=== PATIENT | female | born 1985 | race Caucasian/White ===

== ENCOUNTER → 2016-07-06 | Outpatient (CLI) | payer BC | END | disposition home or self-care (01) | LOC: LABWHC1 15:45 | PROVIDERS: ATTEND Obstetrics & Gynecology | DX: Z34.00 Encounter for supervision of normal first pregnancy, unspecified trimester (principal); Z3A.00 Weeks of gestation of pregnancy not specified | CPT/HCPCS: 36415; 84702; 86850; 86900; 86901 ==

== ENCOUNTER → 2016-07-08 | Outpatient (CLI) | payer BC | END | disposition home or self-care (01) | LOC: LABWHC1 15:14 | PROVIDERS: ATTEND Obstetrics & Gynecology | DX: Z34.00 Encounter for supervision of normal first pregnancy, unspecified trimester (principal); Z3A.00 Weeks of gestation of pregnancy not specified | CPT/HCPCS: 36415; 84702; 86850; 86900; 86901 ==

== ENCOUNTER → 2016-07-15 | Outpatient (CLI) | payer BC | END | disposition home or self-care (01) | LOC: LABWHC1 11:57 | PROVIDERS: ATTEND Obstetrics & Gynecology | DX: O03.9 Complete or unspecified spontaneous abortion without complication (principal); Z3A.00 Weeks of gestation of pregnancy not specified | CPT/HCPCS: 36415; 84702 ==

== ENCOUNTER → 2016-07-22 | Outpatient (CLI) | payer BC | END | disposition home or self-care (01) | LOC: LABWHC1 15:22 | PROVIDERS: ATTEND Obstetrics & Gynecology | DX: O03.9 Complete or unspecified spontaneous abortion without complication (principal); Z3A.00 Weeks of gestation of pregnancy not specified | CPT/HCPCS: 36415; 84702 ==

== ENCOUNTER 2017-02-12 00:22 | Emergency (ER) | payer BC ==
[2017-02-12] MEDS ORDERED: LORazepam 1 MG TAB PO STA (00:51)
--- NOTE | 2017-02-12 01:31 | ED ---
General Adult HPI - General Chief complaint: Anxiety Stated complaint: Anxiety Time Seen by Provider: 02/12/17 00:41 Source: patient, RN notes reviewed Mode of arrival: ambulatory Limitations: no limitations - History of Present Illness Initial comments: 31-year-old female presents emergency room chief complaint of a panic attack. They are having fertility problems and she is just been overwhelmed by the thought she woke up out of sleep panic taking she had a host come down so they thought that they should be seen. Patient states that she normally can calm himself down at home but today it is just worse. She has a lot of anxiety around her fertility issues. She denies any chest pain or shortness of breath with this. She states she just is so overwhelmed and she is not on how to deal with it. She denies any suicidal or homicidal thoughts.Patient denies any recent fever, chills, shortness of breath, chest pain, back pain, abdominal pain , nausea vomiting, numbness or tingling, dysuria or hematuria, constipation or diarrhea, headaches or visual changes, or any other current symptoms. - Related Data Home Medications Medication Instructions Recorded Confirmed No Known Home Medications [No 02/12/17 02/12/17 Known Home Medications] Allergies Allergy/AdvReac Type Severity Reaction Status Date / Time Penicillins Allergy Rash/Hives Verified 02/12/17 00:35 Review of Systems ROS Statement: Those systems with pertinent positive or pertinent negative responses have been documented in the HPI. ROS Other: All systems not noted in ROS Statement are negative. Past Medical History Past Medical History: No Reported History History of Any Multi-Drug Resistant Organisms: None Reported Additional Past Surgical History / Comment(s): egg retreival surgery Past Psychological History: Anxiety Smoking Status: Never smoker Past Alcohol Use History: Rare Past Drug Use History: None Reported General Exam Limitations: no limitations General appearance: alert, anxious Head exam: Present: atraumatic, normocephalic, normal inspection Eye exam: Present: normal appearance ENT exam: Present: mucous membranes moist Neck exam: Present: normal inspection. Absent: tenderness, meningismus, lymphadenopathy Respiratory exam: Present: normal lung sounds bilaterally. Absent: respiratory distress, wheezes, rales, rhonchi, stridor Cardiovascular Exam: Present: regular rate, normal rhythm, normal heart sounds. Absent: systolic murmur, diastolic murmur, rubs, gallop, clicks Neurological exam: Present: alert, oriented X3 Psychiatric exam: Present: anxious Skin exam: Present: warm, dry, intact, normal color. Absent: rash Course Vital Signs 02/12/17 00:36 Temperature 98.2 F Pulse Rate 110 H Respiratory 20 Rate Blood Pressure 184/103 O2 Sat by Pulse 100 Oximetry Medical Decision Making - Medical Decision Making 31 presents for anxiety. we did give her an ativan and she is feeling much better. this time we discussed discharged home. we discussed follow-up we discussed return parameters and all questions. patient states she understood and she is given plan. she'll be discharged home. Disposition Clinical Impression: Acute anxiety Disposition: HOME SELF-CARE Condition: Stable Instructions: Generalized Anxiety Disorder (ED) Additional Instructions: Please use medication as discussed. Please follow up with family doctor if symptoms have not improved over the next two days. Please return to the emergency room if your symptoms increase or worsen or for any other concerns. Referrals: Jamee Cadet MD [REFERRING] - 1-2 days Time of Disposition: 01:31
[2017-02-12 01:53] VITALS: BP 130/70; PULSE 100; RESP 16; TEMP 98.6
== END 2017-02-12 01:53 | disposition home or self-care (01) ==
LOC: EC 00:22
DX: F41.9 Anxiety disorder, unspecified (principal); Z88.0 Allergy status to penicillin
CPT/HCPCS: 99282

== ENCOUNTER 2018-01-12 14:54 | Outpatient (CLI) | payer BC ==
[2018-01-12 16:01] VITALS: BP 120/75; PULSE 90; RESP 16; TEMP 98
--- NOTE | 2018-01-23 12:37 | P.MSEPDOC ---
Presenting Problems - Arrival Data Date of Arrival on Unit: 01/12/18 Time of Arrival on Unit: 14:55 Mode of Transport: Ambulatory - Complaint OB-Reason for Admission/Chief Complaint: Decreased Movement Medical History - Information : 4 Para: 0 Term: 0 : 0 Abortions: Spontaneous or Elective: 0 Number of Living Children: 0 - Gestational Age Gestational Age by TING (wks/days): 27 Weeks and 6 Days Review of Systems - Review of Systems Constitutional: No problems Breast: No problems ENT: No problems Cardiovascular: No problems Respiratory: No problems Gastrointestinal: No problems Genitourinary: No problems Musculoskeletal: No problems Neurological: No problems Skin: No problems Vital Signs - Temperature Temperature: 98.0 F Temperature Source: Tympanic - Pulse Right Brachial Pulse Rate: 90 Pulse Assessment Method: Automatic Cuff - Respirations Respiratory Rate: 16 Oxygen Delivery Method: Room Air - Blood Pressure Right Arm Blood Pressure: 120/75 Blood Pressure Mean: 90 Blood Pressure Source: Automatic Cuff Medical Screen Scoring (Pre) - Cervical Exam Dilation: Exam Deferred Effacement: Exam Deferred Membranes: Intact - Uterine Contractions Frequency: N/A Duration: N/A Intensity: N/A - Maternal Vital Signs Maternal Temperature: N/A Maternal Blood Pressure: N/A Signs of Preeclampsia: N/A Maternal Respirations: N/A - Pain Assessment Pain Scale Used: Numeric (1 - 10) Pain Intensity: 0 Pain Management Goal: 0 - Maternal Trauma Maternal Trauma: N/A - Assessment Baseline FHR: 145 Heart Rate - NICHD Category: Category I (Normal) = 0 NST: Reactive Position: N/A - Total Score Total Score (Pre): 0 - Level of Risk Level of Risk: N/A Physician Notification (Pre) - Physician Notified Physician Notified Date: 01/12/18 Physician Notified Time: 15:30 Physician/Practitioner Notifed:: Dr. Mcrae Spoke With: Dr. Mcrae New Order Received: Yes - Notification Comment Comment: d/c home Disposition - Disposition OB Disposition: Discharge to home Discharge Date: 01/12/18 Discharge Time: 16:00 I agree with the RN Medical Screening Exam: Yes Risk & Benefit of care provided described in d/c instruction: Yes Diagnosis: [id number]
== END 2018-01-12 16:06 | disposition home or self-care (01) ==
LOC: FBPOP 14:54
PROVIDERS: ATTEND Obstetrics & Gynecology
DX: O36.8120 Decreased fetal movements, second trimester, not applicable or unspecified (principal); Z3A.27 27 weeks gestation of pregnancy
CPT/HCPCS: 59025; 99213

== ENCOUNTER 2020-05-18 14:30 | Emergency (ER) | payer BC ==
[2020-05-18 14:43] VITALS: BP 139/91; PULSE 63; RESP 18; TEMP 98.1
--- NOTE | 2020-05-18 15:32 | XR ---
EXAMINATION TYPE: XR foot complete RT DATE OF EXAM: 05/18/2020 COMPARISON: None HISTORY: Pain TECHNIQUE: Three-view right foot FINDINGS: No acute fracture or dislocation is evident. Soft tissues appear normal. Joint spaces are p reserved. IMPRESSION: 1. Normal three-view right foot. 2. Follow-up exams can be performed 7-10 days from acute trauma for continued pain.
--- NOTE | 2020-05-18 15:35 | XR ---
EXAMINATION TYPE: XR ankle complete RT DATE OF EXAM: 05/18/2020 COMPARISON: None HISTORY: Pain TECHNIQUE: Three-view right ankle FINDINGS: No acute fractures or dislocations are evident. Soft tissues are normal. Ankle mortise is i ntact. Tiny Achilles tendon calcaneal heel spur is present. Follow-up exams can be performed 7-10 days from acute trauma for continued pain. IMPRESSION: 1. Tiny Achilles tendon spur. 2. Ankle appears otherwise unremarkable.
--- NOTE | 2020-05-18 15:41 | ED ---
General Adult HPI - General Chief complaint: Extremity Injury, Lower Stated complaint: Ankle Injury Time Seen by Provider: 05/18/20 15:12 Source: patient Mode of arrival: ambulatory Limitations: no limitations - History of Present Illness Initial comments: 35-year-old female presents to the emergency room for a chief complaint of right ankle pain. Patient reports that she was walking when she tripped over her child's toy and injured her right ankle. States she is able to walk on it but it does still hurt somewhat. Patient reports that she has broken that ankle before. Patient states she was concerned she could've fractured it again.Patient has no other complaints at this time including shortness of breath, chest pain, abdominal pain, nausea or vomiting, headache, or visual changes. - Related Data Home Medications Medication Instructions Recorded Confirmed Aspirin 1 tab PO DAILY 01/12/18 01/12/18 Heparin Sodium,Porcine [Heparin 5,000 units SQ BID 01/12/18 01/12/18 Sodium] Levothyroxine Sodium [Synthroid] 50 mcg PO DAILY 01/12/18 01/12/18 Allergies Allergy/AdvReac Type Severity Reaction Status Date / Time Penicillins Allergy Rash/Hives Verified 05/18/20 14:38 Review of Systems ROS Statement: Those systems with pertinent positive or pertinent negative responses have been documented in the HPI. ROS Other: All systems not noted in ROS Statement are negative. Past Medical History Past Medical History: No Reported History History of Any Multi-Drug Resistant Organisms: None Reported Past Surgical History: Section Additional Past Surgical History / Comment(s): egg retreival surgery Past Psychological History: Anxiety Smoking Status: Never smoker Past Alcohol Use History: Rare Past Drug Use History: None Reported General Exam Limitations: no limitations General appearance: alert, in no apparent distress Head exam: Present: atraumatic Eye exam: Present: normal appearance, PERRL, EOMI. Absent: scleral icterus, conjunctival injection, periorbital swelling ENT exam: Present: normal exam, mucous membranes moist Neck exam: Present: normal inspection, full ROM. Absent: tenderness, meningismus, lymphadenopathy Respiratory exam: Present: normal lung sounds bilaterally. Absent: respiratory distress, wheezes, rales, rhonchi, stridor Cardiovascular Exam: Present: regular rate, normal rhythm, normal heart sounds. Absent: systolic murmur, diastolic murmur, rubs, gallop, clicks Extremities exam: Present: full ROM (Full range of motion of the right ankle. Full range motion of all digits of the right foot.), tenderness (Tenderness noted to the lateral malleolus of the right ankle. No tenderness to the medial malleolus. No tenderness to the right foot including the navicular and the fifth metatarsal.), normal capillary refill (cap refill < 2 seconds, dp pulse 2+ RLE), joint swelling (mild swelling to the lateral malleolus), other (Sensation intact right lower extremity.). Absent: pedal edema, calf tenderness Back exam: Present: CVA tenderness (L) Course Vital Signs 05/18/20 14:40 Temperature 98.1 F Pulse Rate 63 Respiratory 18 Rate Blood Pressure 139/91 O2 Sat by Pulse 100 Oximetry Medical Decision Making - Medical Decision Making X-ray of the right foot and ankle are negative for acute fracture. There is a small spur noted at the Achilles tendon. Patient likely has a sprain of the right ankle. I did offer to put patient in a brace however she reports she already has these at home. She does not want a prescription for crutches. Recommended she follow up with orthopedics in should get repeat x-rays if symptoms continue for 7 days. She is agreeable to this. Disposition Clinical Impression: Right ankle pain Disposition: HOME SELF-CARE Condition: Good Instructions (If sedation given, give patient instructions): Ankle Sprain (ED) Additional Instructions: Please take Motrin and Tylenol for pain. Rest ice and elevate the ankle. Follow-up with your doctor or orthopedics. Return to the emergency room for any worsening symptoms. If symptoms continue for 7 days you may need repeat x- rays. Is patient prescribed a controlled substance at d/c from ED?: No Referrals: Cj Scruggs DO [Doctor of Osteopathic Medicine] - 1-2 days Time of Disposition: 16:18
== END 2020-05-18 16:25 | disposition home or self-care (01) ==
LOC: EC 14:30
DX: M25.571 Pain in right ankle and joints of right foot (principal); Z88.0 Allergy status to penicillin; W22.8XXA Striking against or struck by other objects, initial encounter; Y92.89 Other specified places as the place of occurrence of the external cause
CPT/HCPCS: 99283